=== PATIENT | female | born 1965 | race Two or more races ===

== ENCOUNTER 2024-06-13 22:34 | Emergency (ER) | payer MEDICAID, SELFPAY ==
[2024-06-13 22:35] VITALS: BMI 20.6
[2024-06-13 22:46] VITALS: BP 153/92; PULSE 82; RESP 18; TEMP 36.8; O2SAT 98
--- NOTE | 2024-06-13 23:06 | PD.EDURI ---
Upper Respiratory Inf. RME/HPI General Chief Complaint: Flu Like Symptoms Stated Complaint: COUGH Time Seen by Provider: 06/13/24 22:42 Arrival date/time: 06/13/24 22:34 RME / HPI RME / HPI Narrative: This section includes all my notes and documentations, including HPI, PE, and ED course. Edd Puckett MD HPI: 59 y/o female BIB daughter presents to ED c/o shortness of breath and cough x 1 week. Patient denies fever or any history of asthma. Daughter reports patient called her stating she couldn't breathe a few days ago. No modifying factors reported. No other concerns or complaints expressed at this time. ROS: All negative except as documented in HPI. Physical Exam: General: Alert and oriented. Appears anxious. Eyes: Conjunctivae and lids clear. ENT: No nasal congestion. Neck: Supple. Heart: RRR. Lungs: No respiratory distress. Good air movement with rhonchi. Abdomen: Soft and nontender. Legs: No clubbing, cyanosis, edema. Skin: Warm and dry. Neuro: Alert and oriented X 3. I reviewed all diagnostic test results. My interpretation of the chest x-ray is increased bronchial markings. COVID/influenza negative. At this point, diagnoses include lower respiratory infection and anxiety. Treatment here included Alprazolam and Prednisone. Significant improvement noted. Recommend outpatient treatment. Based on my best medical judgment, made decision no further evaluation or treatment indicated at this time. Patient understands and agrees to the discharge instructions customized and printed, see below. Discharge instructions from Dr. Puckett: --No physical exertion for 3 days to help rest the lungs. ?No smoking or exposure to smoking or pets or dust or cold or humidity. --Zithromax to kill the germs causing the bronchitis. --Prednisone to help decrease the swelling in the airways. --Xanax for anxiety as needed. --See a private doctor on 06/18/2024 if not completely better. --Seek immediate medical care with worsening or with any concerns. Edd Puckett MD Related Data Previous Rx's ?Medication ?Instructions ?Recorded alprazolam 0.25 mg tablet (Xanax) 0.25 mg PO BID PRN anxiety #10 tabs 06/14/24 azithromycin 500 mg tablet 500 mg PO QDAY 3 days #3 tabs 06/14/24 (Zithromax TRI-RYLAN) prednisone 20 mg tablet 20 mg PO QDAY 3 days #3 tabs 06/14/24 Allergies Allergy/AdvReac Type Severity Reaction Status Date / Time NKA Allergy Unknown Uncoded 10/11/02 20:54 No Known Allergies Allergy Uncoded 10/11/02 15:12 Review of Systems Review of Systems Systems Reviewed: All systems reviewed, normal except as documented Narrative Review of Systems: Refer to [facility] Past Medical History Social History SMOKING STATUS: Never smoker ED Exam Narrative Physical exam: Refer to [facility] Course Course Course Narrative: Chest x-ray performed in ED due to shortness of breath. Quality Measures none Orders Category Date Time Status Bedside COVID-19 Antigen Test NOW Care 06/13/24 23:10 Active Bedside Influenza A&B Antigen Test NOW Care 06/13/24 23:10 Completed XR chest 1V portable Stat Exams 06/13/24 23:12 Completed ALPRazoLAM [Xanax] Med 06/13/24 23:10 Discontinued 0.5 mg PO X1 ONE predniSONE Med 06/13/24 23:10 Discontinued 40 mg PO X1 ONE Vital Signs Vital signs: Vital Signs Temperature 98.3 F 06/13/24 22:46 Pulse Rate 82 06/13/24 22:46 Respiratory Rate 18 06/13/24 22:46 Blood Pressure 153/92 H 06/13/24 22:46 Pulse Oximetry (%) 98 06/13/24 22:46 Oxygen Delivery Method Room Air 06/13/24 22:46 Upper Respiratory Infection MDM Narrative MDM Narrative:: Cathie Banuelos, attest that this documentation has been prepared under the direction and in the presence of Dr. Edd Puckett, and the documentation accurately describes the services performed. Patient data External records reviewed:: None Clinical information provided by:: patient and family (Daughter) Social determinants that could affect healthcare access:: none Patient has the following chronic illnesses:: N/A How is presenting disease/condition affected by chronic disease/condition?: no chronic disease Evaluation data The following diagnostics were reviewed and interpreted by me:: lab results and radiology exam(s) Lab and/or radiology exams considered but not ordered:: None Interpretation Summary: Lower respiratory infection Medications / Prescriptions Medications or Prescriptions considered but not ordered:: None Medication administrations:: Medication Administration History Discontinued Medications Alprazolam (Alprazolam 0.25 Mg Tablet) 0.5 mg PO X1 ONE Stop: 06/13/24 23:11 Last Admin: 06/13/24 23:27 Dose: 0.5 mg Documented By: NORIS Prednisone (Prednisone 20 Mg Tablet) 40 mg PO X1 ONE Stop: 06/13/24 23:11 Last Admin: 06/13/24 23:28 Dose: 40 mg Documented By: NORIS Xanax, Prednisone Consultations Consultation(s) initiated? (list below): No Diagnosis Upper Respiratory Differential Diagnosis: upper respiratory infection, sinusitis, viral infection, bronchitis, influenza and pharyngitis Most likely diagnosis given after review of the tests above:: lower respiratory infection Admission Indicated Admission indicated?: not indicated Explain why admission is indicated or not indicated:: With significant improvement, there was no indication for admission. Admission Request Was there a request for admission?: No Disposition Plan Disposition Plan: Discharge Discharge Attestation Discharge Attestation: The patient and all family members were given an opportunity to ask questions and understood the discharge instructions. Discharge instructions specifically effects, indications for sooner follow up or return to the emergency department, and the expected course of current diagnosis. Patient condition: Stable Discharge Plan Plan Patient Disposition: HOME (Self Care) Prescriptions/Referrals Prescriptions/Med Rec: New prednisone 20 mg tablet 20 mg PO QDAY 3 Days Qty: 3 0RF Taper: Prednisone Taper 20 mg DAILY for 2 Days and 0 Hour 10 mg DAILY for 2 Days and 0 Hour 5 mg DAILY for 7 Days and 0 Hour alprazolam [Xanax] 0.25 mg tablet 0.25 mg PO BID PRN (Reason: anxiety) Qty: 10 0RF azithromycin [Zithromax TRI-RYLAN] 500 mg tablet 500 mg PO QDAY 3 Days Qty: 3 0RF Referrals: Temporary Provider,ED [Physician] - In 1 week Problem List Clinical Impression: Lower respiratory infection Patient/Caregiver Discharge Instructions Discharge Activity: activity as tolerated Education Materials: ED Bronchitis, Antibiotics (Child) Additional Instructions: Discharge instructions from Dr. Puckett: --No physical exertion for 3 days to help rest the lungs. ?No smoking or exposure to smoking or pets or dust or cold or humidity. --Zithromax to kill the germs causing the bronchitis. --Prednisone to help decrease the swelling in the airways. --Xanax for anxiety as needed. --See a private doctor on 06/18/2024 if not completely better. --Seek immediate medical care with worsening or with any concerns. Instrucciones de luis fernando del Dr. Puckett: -- No realice esfuerzo f?sico genia 3 d?as para ayudar a los pulmones a descansar. -- No fume ni se exponga al humo, a las mascotas, al polvo, al fr?o ni a la humedad. -- Zitromax para eliminar los g?rmenes que causan la bronquitis. -- Prednisona para ayudar a disminuir la inflamaci?n de las v?as respiratorias. -- Xanax para la ansiedad, seg?n sea necesario. -- Consulte a un m?dico particular el 18/06/2024 si no mejora por completo. -- Busque atenci?n m?dica inmediata si la condici?n empeora o tiene alguna inquietud. Print Language: Icelandic Stand Alone Forms: [employer]essenia Award Info., Patient Portal Info Letter
--- NOTE | 2024-06-13 23:12 | XR_ITS ---
Examination: PA chest single view Technique: Upright PA chest single view Exam date and time: June 13, 2024 11:24 PM Indications: Shortness of breath today. Findings: Normal heart size. No pneumonia or pulmonary edema. Moderate osteopenia Impression: No pneumonia or pulmonary edema
[2024-06-13] MEDS: ALPRazoLAM 0.25 MG TABLET 0.5 MG PO (23:27)
[2024-06-13] MEDS: predniSONE 20 MG TABLET 40 MG PO (23:28)
[2024-06-14 00:35] VITALS: BP 136/76; PULSE 76; RESP 16; TEMP 36.9; O2SAT 98
== END 2024-06-14 00:38 | disposition home or self-care (01) ==
LOC: SERX 06-14 02:36
PROVIDERS: Emergency Provider Emergency Medicine; PCP Physician Assistant
DX: J22 Unspecified acute lower respiratory infection (principal); F41.9 Anxiety disorder, unspecified
CPT/HCPCS: 71045; 87400; 87651; 87811; 99283; J7512; A9270